=== PATIENT | female | born 1950 | race Caucasian/White ===

== ENCOUNTER 2018-12-02 10:33 | Emergency (ER) | payer OTHER, MEDICAID ==
[2018-12-02 11:02] VITALS: BP 138/69
[2018-12-02 11:25] LABS: BILIRUBIN,URINE NEGATIVE (NEGATIVE); GLUCOSE, URINE (UA) NEGATIVE (NEGATIVE); KETONES,URINE (UA) NEGATIVE (NEGATIVE); LEUKOCYTE ESTERASE, URINE TRACE (NEGATIVE); NITRITE,URINE NEGATIVE (NEGATIVE); OCCULT BLOOD,URINE TRACE-LYSE (NEGATIVE); PH,URINE 6.5 PH (5.0-7.5); PROTEIN,URINE NEGATIVE (NEGATIVE); UROBILINOGEN,URINE 0.2 (NORMAL) E.U./dL (NORMAL)
[2018-12-02 11:26] LABS: CLARITY,URINE HAZY (CLEAR)
[2018-12-02 11:34] LABS: BACTERIA,URINE Many /HPF (None Seen); EPITHELIAL CELLS,UR FEW Transitional /HPF (<= Few); RBC,URINE 0-5 /HPF (0-5); SQUAMOUS EPITHELIAL CELL,UR FEW Squamous (<= Few); WBC CLUMPS,URINE PRESENT
[2018-12-02] MEDS ORDERED: cephALEXin 250 MG CAPSULE PO STA (12:04)
--- NOTE | 2018-12-02 12:16 | ED Physician Documentation ---
PD HPI FEMALE - Stated complaint Stated Complaint: NAUSEA - Chief complaint Chief Complaint: General - History obtained from History obtained from: Patient - History of Present Illness Timing - onset: How many days ago (2) Timing - details: Still present Associated symptoms: Dysuria Similar symptoms before: Diagnosis (uti) - Treatment prior to arrival Treatment prior to arrival: Azo - Additional information Additional information: Patient is a 68-year-old female who presents with dysuria and frequency of 2 days duration. She reports associated nausea, but denies vomiting. She denies fever or back pain. She has been using Azo which has improved her dysuria. She has a history of similar symptoms with a urinary tract infection about 3 months ago. She was treated with Macrobid at that time. [place], and has no local physician. Review of Systems Constitutional: denies: Fever Nose: denies: Congestion Throat: denies: Sore throat Cardiac: denies: Chest pain / pressure Respiratory: denies: Dyspnea, Cough GI: reports: Nausea. 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 HEENT: Tonsil/Adenoidectomy - Present Medications Home Medications: Ambulatory Orders Medication Instructions Recorded Confirmed Phenazopyridine HCl [Pyridium] 200 mg PO TID PRN #6 tablet 12/02/18 cephALEXin [Cephalexin] 500 mg PO TID #15 tablet 12/02/18 - Allergies Allergies/Adverse Reactions: Allergies Allergy/AdvReac Type Severity Reaction Status Date / Time aspirin Allergy Emesis Verified 12/02/18 11:02 - Social History Does the pt smoke?: No Smoking Status: Never smoker Does the pt drink ETOH?: No Does the pt have substance abuse?: No - Immunizations Immunizations are current?: Yes PD ED PE NORMAL - Vitals Vital signs reviewed: Yes (Borderline systolic hypertension.) - General General: 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, Well developed/nourished - HEENT HEENT: Atraumatic - Neck Neck: No adenopathy - Cardiac Cardiac: RRR - Respiratory Respiratory: No respiratory distress, Clear bilaterally - Abdomen Abdomen: Soft, Non tender - Back Back: No CVA TTP - Derm Derm: No rash - Neuro Neuro: 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, Normal speech Results - Vitals Vitals: Vital Signs - 24 hr 12/02/18 10:59 Temperature 36.8 C Heart Rate 70 Respiratory 18 Rate Blood Pressure 138/69 H O2 Saturation 98 Oxygen O2 Source Room air - Labs Labs: Laboratory Tests 12/02/18 11:12 Urine Color YELLOW Urine Clarity HAZY Urine pH 6.5 Ur Specific [place] <=1.005 Urine Protein NEGATIVE Urine Glucose (UA) NEGATIVE Urine Ketones NEGATIVE Urine Occult Blood TRACE-LYSE Urine Nitrite NEGATIVE Urine Bilirubin NEGATIVE Urine Urobilinogen 0.2 (NORMAL) Ur Leukocyte Esterase TRACE H Urine RBC 0-5 Urine WBC 6-10 H Urine WBC Clumps PRESENT Ur Epithelial Cells FEW Transitional Ur Squamous Epith Cells FEW Squamous Urine Bacteria Many H Ur Microscopic Review INDICATED Urine Culture Comments INDICATED PD MEDICAL DECISION MAKING - ED course Complexity details: reviewed results, considered differential, d/w patient ED course: The patient's presentation is most consistent with acute urinary tract infection, with positive urinalysis. Her presentation does not suggest pyelonephritis nor sepsis. Treatment in the emergency department included administration of cephalexin 500 mg orally. She is being discharged with prescriptions for cephalexin and Pyridium. I discussed with her the expected course of illness, antibiotic treatment and outpatient follow-up, as well as potentially worrisome signs or symptoms that should prompt reevaluation in the emergency department. Departure - Departure Disposition: 01 Home, Self Care Clinical Impression: Urinary tract infection Qualifiers: Urinary tract infection type: acute cystitis Hematuria presence: without hematuria Qualified Code(s): N30.00 - Acute cystitis without hematuria Condition: Stable Instructions: ED UTI Cystitis Female Prescriptions: cephALEXin [Cephalexin] 500 mg PO TID #15 tablet Phenazopyridine HCl [Pyridium] 200 mg PO TID PRN #6 tablet PRN Reason: dysuria Comments: Drink plenty of fluids, including cranberry juice. Take cephalexin twice daily as prescribed. You can use Pyridium as prescribed if needed for painful urination. You can use Tylenol or ibuprofen as needed for fever or discomfort. Follow up with your primary physician within 2 weeks. Call to schedule appointment. Return to the emergency department if you develop increasing abdominal pain, fever with shaking chills, persistent vomiting, or otherwise worsening symptoms.
== END 2018-12-02 12:30 | disposition home or self-care (01) ==
LOC: ED 10:33
DX: N30.00 Acute cystitis without hematuria (principal)
CPT/HCPCS: 81001; 87077; 87086; 87181; 99283; 99284; A9270; 81003

== ENCOUNTER 2021-08-07 11:03 | Emergency (ER) | payer MEDICARE, MEDICAID ==
--- NOTE | 2021-08-07 11:20 | ED Physician Documentation ---
PD HPI URI - Stated complaint Stated Complaint: COUGH, EXHAUSTION, DIZZY - Chief complaint Chief Complaint: Resp - History obtained from History obtained from: Patient - History of Present Illness Timing - onset: How many days ago (2) Timing duration: Days (2 days of increasing symptoms. Did home rapid test yesterday and today - both were positive.) Timing details: Abrupt onset, Still present Associated symptoms: Chills, Dry cough, Dyspnea. No: Fever, NVD (had some diarrhea last week, not currently) Contributing factors: Sick contact (she is visiting daughter's family this week. Kids have URI symptoms last week. Not tested.). No: Travel, Immunocompromised Similar symptoms before: Has not had sx before Recently seen: Not recently seen Review of Systems Constitutional: reports: Chills, Myalgias, Fatigue. 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 HEENT: Tonsil/Adenoidectomy - Present Medications Home Medications: Ambulatory Orders Medication Instructions Recorded Confirmed Albuterol Sulf [Ventolin Hfa 2 - 3 puffs INH QID 10 Days #1 08/07/21 Inhaler] inhaler Benzonatate [Tessalon] 100 mg PO TID PRN #20 cap 08/07/21 - Allergies Allergies/Adverse Reactions: Allergies Allergy/AdvReac Type Severity Reaction Status Date / Time aspirin Allergy Emesis Verified 12/02/18 11:02 - Social History Does the pt smoke?: No Smoking Status: Never smoker Does the pt drink ETOH?: No Does the pt have substance abuse?: No - Immunizations Immunizations are current?: Yes PD ED PE NORMAL - Vitals Vital signs reviewed: Yes - General General: 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, No acute distress, Well developed/nourished - HEENT HEENT: Ears normal, Moist mucous membranes, Pharynx benign - Neck Neck: Supple, no meningeal sign, No adenopathy - Cardiac Cardiac: RRR, No murmur - Respiratory Respiratory: No respiratory distress. No: Clear bilaterally (tight sounds with scattered wheezes. No coarse sounds. ) - Abdomen Abdomen: Soft, Non tender - Derm Derm: Normal color, Warm and dry - Extremities Extremities: Normal ROM s pain, No edema, No calf tenderness / cord - Neuro Neuro: 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, No motor deficit, Normal speech Results - Vitals Vitals: Vital Signs - 24 hr 08/07/21 08/07/21 08/07/21 11:11 12:10 12:17 Temperature 36.9 C Heart Rate 76 78 88 Respiratory 19 16 19 Rate Blood Pressure 138/109 H 138/75 H O2 Saturation 100 100 Oxygen O2 Source Room air PD MEDICAL DECISION MAKING - ED course Complexity details: considered differential (COVID test positive at home. Symptoms for 2 days. Can give Albuterol and tessalon. Also antiviral. ), d/w patient Departure - Departure Disposition: 01 Home, Self Care Clinical Impression: Dyspnea due to COVID-19 Condition: Stable Record reviewed to determine appropriate education?: Yes Instructions: ED Dyspnea Shortness of Breath Prescriptions: Benzonatate [Tessalon] 100 mg PO TID PRN #20 cap PRN Reason: Cough Albuterol Sulf [Ventolin Hfa Inhaler] 2 - 3 puffs INH QID 10 Days #1 inhaler Comments: Use the antiviral medicine as directed. Use the albuterol inhaler 2 to 3 puffs 4 times a day for the next 7 to 10 days and extra times as needed. You could also add benzonatate/Tessalon Tessalon if needed for cough. Tylenol or ibuprofen if needed for fevers or pains. Stay well-hydrated. I transmitted your prescriptions to [facility] pharmacy. Discharge Date/Time: 08/07/21 13:20
[2021-08-07] MEDS: ALBUTEROL 1 PUFF INH STA (12:10)
[2021-08-07] MEDS: MOLNUPIRAVIR PREPACK PO STA (12:15)
[2021-08-07] MEDS: BENZONATATE 100 MG CAPSULE PO STA (12:15)
[2021-08-07 12:17] VITALS: BP 138/75
== END 2021-08-07 13:20 | disposition home or self-care (01) ==
LOC: ED 11:03
DX: R06.09 Other forms of dyspnea (principal); U09.9 Post COVID-19 condition, unspecified
CPT/HCPCS: 94640; 99282; 99283; A9270; J3490

== ENCOUNTER 2022-03-06 14:57 | Outpatient (CLI) | payer MEDICARE ==
--- NOTE | 2022-03-14 11:36 | Mammography Report ---
BILATERAL DIGITAL SCREENING MAMMOGRAM 3D/2D: 03/06/2022 CLINICAL: Routine screening. No prior exams were available for comparison. Both breasts are heterogeneously dense, which may obscure small masses (category c / 51-75% glandular tissue). No significant masses, calcifications, or other findings are seen in either breast. IMPRESSION: NEGATIVE There is no mammographic evidence of malignancy. A 1 year screening mammogram is recommended. Based on the Tyrer Cuzick model (a risk assessment model) the patients lifetime risk is 9.3% and her 10 year risk is 5.9%. According to the ACR, ACS, and NCCN guidelines, an annual breast MRI exam anton g with mammogram is recommended if the patients lifetime risk is 20% or greater. This exam was interpreted at Station ID: [id number]. NOTE: For mammograms, a report in lay terms will be sent to the patient. Approximately 15% of breast malignancies will not be visualized mammographically. In the management of a palpable breast mass, a negative mammogram must not discourage biopsy of a clinically suspicious lesion. Electronically Signed By: Tong Contreras M.D. [facility]:03/13/2022 11:40:23 ACR BI-RADS Category 1: Negative 3341F PARENCHYMAL PATTERN: (D) - The breast(s) demonstrate(s) heterogeneously dense fibroglandular emilio cristina. BI-RADS CATEGORY: (1) - 1 RECOMMENDATION: (ANNUAL) - Recommend routine annual screening mammography. [id number] 1 year screening LATERALITY: (B)
== END 2022-03-06 14:58 | disposition home or self-care (01) ==
LOC: DI 14:57
PROVIDERS: ATTEND Internal Medicine
DX: Z12.31 Encounter for screening mammogram for malignant neoplasm of breast (principal)

== ENCOUNTER 2022-03-10 12:26 | Outpatient (CLI) | payer MEDICARE ==
--- NOTE | 2022-03-10 15:14 | DEXA Report ---
PROCEDURE: Dexa Spine and/or Hip INDICATIONS: OSTEOPOROSIS TECHNIQUE: Dual energy x-ray absorptiometry (DXA) was performed on a Petsy System. Regions measur ed are the AP Spine, femoral neck, and if needed forearm. COMPARISON: None. FINDINGS: Lumbar Spine: Bone Mineral Density 1.033 g/cm/cm,T score -1.2 Left Femoral Neck: Bone Mineral Density 0.579 g/cm/cm, T score -3.3 Left Hip: Bone Mineral Density 0.630 g/cm/cm,T score -3.0 (T score greater or equal to -1.0: NORMAL) (T score from -1.1 to -2.4: OSTEOPENIA) (T score less than or equal to -2.5 to: OSTEOPOROSIS) Impression: 1. Osteoporosis of the left hip. 2. Osteopenia of the lumbar spine. Patients with diagnosis of osteoporosis or osteopenia should have regular bone mineral density assess ment. For those eligible for Medicare, routine testing is allowed once every 2 years. Testing frequ ency can be increased for patients who have rapidly progressing disease or for those who are receivin g medical therapy to restore bone mass. Reviewed by: Brooklyn Carreon MD on 03/10/2022 3:13 PM PST Approved by: Brooklyn Carreon MD on 03/10/2022 3:13 PM PST Station ID: [id number]
== END 2022-03-10 12:27 | disposition home or self-care (01) ==
LOC: DI 12:26
PROVIDERS: ATTEND Internal Medicine
DX: M81.0 Age-related osteoporosis without current pathological fracture (principal)

== ENCOUNTER 2022-07-24 13:53 | Emergency (ER) | payer MEDICARE, MEDICAID ==
[2022-07-24 14:10] VITALS: BP 145/72
[2022-07-24 14:34] LABS: BILIRUBIN,URINE NEGATIVE (NEGATIVE); GLUCOSE, URINE (UA) NEGATIVE (NEGATIVE); KETONES,URINE (UA) NEGATIVE (NEGATIVE); LEUKOCYTE ESTERASE, URINE TRACE (NEGATIVE); NITRITE,URINE NEGATIVE (NEGATIVE); OCCULT BLOOD,URINE NEGATIVE (NEGATIVE); PH,URINE 6.5 PH (5.0-7.5); PROTEIN,URINE NEGATIVE (NEGATIVE); UROBILINOGEN,URINE 0.2 (NORMAL) E.U./dL (NORMAL)
[2022-07-24 14:37] LABS: CLARITY,URINE CLEAR (CLEAR)
[2022-07-24 14:53] LABS: RBC,URINE 0-5 /HPF (0-5)
[2022-07-24 14:54] LABS: BACTERIA,URINE Few /HPF (None Seen); SQUAMOUS EPITHELIAL CELL,UR FEW Squamous (<= Few)
--- NOTE | 2022-07-24 15:23 | ED Physician Documentation ---
History of Present Illness - Stated complaint Stated Complaint: SOA,FEVER - Chief complaint Chief Complaint: Resp - Additonal information Additional information: An otherwise healthy 71-year-old female presents to the emergency department for evaluation of low-grade temperature elevations for the last week, dry cough and Single episode of epistaxis. She is new to [facility] and is unsure if her symptoms are due to local allergens or a virus. She states last night when she was in bed she had a brief period of where she had shortness of air but it resolved. Though that brief period of shortness of air scared her. Over the last week her cough has been nonproductive. Tmax of 99.5. She is a non-smoker no history of alcohol. No history of pneumonia. No recent travel. She also states that she does have a history of a prolapsed bladder. She has been straining harder than usual to micturate but does not have dysuria urgency or frequency. Patient takes no prescribed medications. 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 Cardiovascular: Other HEENT: Tonsil/Adenoidectomy - Allergies Allergies/Adverse Reactions: Allergies Allergy/AdvReac Type Severity Reaction Status Date / Time aspirin Allergy Emesis Verified 07/24/22 14:03 - Social History Does the pt smoke?: No Smoking Status: Never smoker Does the pt drink ETOH?: No Does the pt have substance abuse?: No - Immunizations Immunizations are current?: Yes PD ED PE NORMAL - General General: 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, No acute distress - HEENT HEENT: Atraumatic, Moist mucous membranes - Neck Neck: Supple, no meningeal sign, No adenopathy - Cardiac Cardiac: RRR, No murmur - Respiratory Respiratory: No respiratory distress, Clear bilaterally - Abdomen Abdomen: Normal bowel sounds, Soft - Derm Derm: Normal color, Warm and dry - Neuro 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: 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, 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 Eye Opening: Spontaneous Motor: Obeys Commands Verbal: Oriented GCS Score: 15 Results - Vitals Vitals: Vital Signs - 24 hr 07/24/22 14:03 Temperature 36.5 C Heart Rate 67 Respiratory 16 Rate Blood Pressure 145/72 H O2 Saturation 100 Oxygen O2 Source Room air - Labs Labs: Laboratory Tests 07/24/22 14:27 Urine Color LIGHT YELLOW Urine Clarity CLEAR Urine pH 6.5 Ur Specific [place] 1.010 Urine Protein NEGATIVE Urine Glucose (UA) NEGATIVE Urine Ketones NEGATIVE Urine Occult Blood NEGATIVE Urine Nitrite NEGATIVE Urine Bilirubin NEGATIVE Urine Urobilinogen 0.2 (NORMAL) Ur Leukocyte Esterase TRACE H Urine RBC 0-5 Urine WBC 4-5 Ur Squamous Epith Cells FEW Squamous Urine Bacteria Few Ur Microscopic Review INDICATED Urine Culture Comments INDICATED PD Medical Decision Making - ED course Complexity details: reviewed results, d/w patient ED course: Well-appearing 71-year-old female presents emergency department for evaluation of mostly dry cough over the last week with low-grade temperature elevations up to 99.5. She is vaccinated boosted for COVID and has tested negative. Here in the emergency department cardiopulmonary auscultation was entirely unremarkable. No hypoxia. I did offer chest x-ray imaging but patient declined. Clinically patient is considered low risk for PE by Wells criteria. She also has no overt symptoms for heart failure such as wheeze, crackles or leg swelling. She had reported some increased straining with micturition but no dysuria urgency or frequency. Her UA is rather unimpressive and as such we will defer antibiotics unless her symptomatology changes. No abdominal tenderness was elicited on today's exam. After thorough discussion with patient at the bedside I discussed that the most likely etiology of her symptoms given the low-grade temperature elevation was a virus though seasonal allergies or not entirely ruled out I am making the recommendation for her to use saline nasal rinse followed by Flonase daily. The usual emergent return precautions for worsening symptoms were discussed. Departure - Departure Disposition: 01 Home, Self Care Clinical Impression: Dry cough Condition: Stable Record reviewed to determine appropriate education?: Yes Comments: You were seen today in the emergency department because over the last week you have had mostly a dry cough. You have had some low-grade temperature elevations up to 99.5. The most likely cause of the symptoms is a simple viral upper respiratory infection. In most cases the symptoms will get better between 7 and 10 days. It is also possible that you are continuing to deal with seasonal allergies. You can continue your daily Claritin or Zyrtec. You may benefit from using a saline nasal rinse at home followed by Flonase nasal spray. This is available [id number]. Your urinalysis today was not suggestive of a urinary tract infection. A culture is pending. If your urinary symptoms change, you develop fevers, have abdominal pain or difficulty with urination please return to the ER for a second evaluation. As always discussed these ED visits with your primary care provider/Dr. Sparks
== END 2022-07-24 15:37 | disposition home or self-care (01) ==
LOC: ED 13:53
DX: R05.9 Cough, unspecified (principal)
CPT/HCPCS: 81001; 81003; 87086; 99283

== ENCOUNTER 2023-03-09 09:59 | Outpatient (CLI) | payer MEDICARE, MEDICAID ==
[2023-03-09 10:14] LABS: BASOPHILS % (AUTO) 0.5 %; EOSINOPHILS # (AUTO) 0.1 10^3/uL (0.0-0.7); EOSINOPHILS % (AUTO) 2.3 %; HCT - HEMATOCRIT 38.1 % (37.0-47.0); HGB - HEMOGLOBIN 12.3 g/dL (12.0-16.0); LYMPHOCYTES # (AUTO) 1.6 10^3/uL (1.5-3.5); LYMPHOCYTES % (AUTO) 29.1 %; MEAN CORPUSCULAR HGB CONC 32.3 g/dL (32.0-36.0); MEAN CORPUSCULAR VOLUME 92.9 fL (81.0-99.0); MEAN PLATELET VOLUME 9.4 fL (7.9-10.8); MONOCYTES # (AUTO) 0.5 10^3/uL (0.0-1.0); MONOCYTES % (AUTO) 8.4 %; NEUTROPHILS # (AUTO) 3.3 10^3/uL (1.5-6.6); NEUTROPHILS % (AUTO) 59.5 %; PLT - PLATELET COUNT 252 10^3/uL (130-450); RED CELL DISTRIBUTION WIDTH 13.1 % (12.0-15.0); WHITE BLOOD COUNT 5.6 x10^3/uL (4.8-10.8)
[2023-03-09 10:31] LABS: ALBUMIN 4.3 g/dL (3.2-5.5); ALBUMIN/GLOBULIN RATIO 1.4 (1.0-2.2); ALKALINE PHOSPHATASE 67 IU/L (42-121); ALT ALANINE AMINOTRANSFERASE 15 IU/L (10-60); AST ASPARTATE AMINOTRANSFERASE 21 IU/L (10-42); BILIRUBIN,TOTAL 0.5 mg/dL (0.2-1.0); BUN - BLOOD UREA NITROGEN 16 mg/dL (6-20); CALCIUM 10.2 mg/dL (8.5-10.3); CARBON DIOXIDE - CO2 30 mmol/L (21-32); CHLORIDE 102 mmol/L (101-111); CHOL/HDL RATIO 2.5 (<4.4); CHOLESTEROL 215 mg/dL; CREATININE 0.7 mg/dL (0.6-1.3); GFR - MDRD 82 (>89); GLUCOSE 101 mg/dL (74-104); HDL CHOLESTEROL 86 mg/dL; LDL CHOLESTEROL,CALCULATED 117 mg/dL; LDL/HDL RATIO 1.4 (<4.4); POTASSIUM 4.6 mmol/L (3.5-4.5); SODIUM 135 mmol/L (135-145); TOTAL PROTEIN 7.3 g/dL (6.4-8.9); TRIGLYCERIDES 61 mg/dL (48-352); VLDL CHOLESTEROL 12 mg/dL
[2023-03-09 10:42] LABS: THYROID STIMULATING HORMONE 2.44 uIU/mL (0.34-5.60)
== END 2023-03-09 10:00 | disposition home or self-care (01) ==
LOC: LAB 09:59
PROVIDERS: ATTEND Internal Medicine
DX: Z00.00 Encounter for general adult medical examination without abnormal findings (principal); C44.310 Basal cell carcinoma of skin of unspecified parts of face; L30.9 Dermatitis, unspecified; M81.0 Age-related osteoporosis without current pathological fracture; I47.19 Other supraventricular tachycardia; R55 Syncope and collapse; N64.4 Mastodynia
CPT/HCPCS: 36415; 80053; 80061; 82306; 83721; 84443; 85025

== ENCOUNTER 2023-03-11 08:25 | Outpatient (CLI) | payer MEDICARE, MEDICAID ==
--- NOTE | 2023-03-11 12:23 | Mammography Report ---
BILATERAL DIGITAL DIAGNOSTIC MAMMOGRAM 3D/2D: 03/11/2023 CLINICAL: Intermittent pain in left breast. Due for bilateral exam. Comparison is made to exam dated: 03/06/2022 mammogram - [facility]. Both breasts are almost entirely fatty (category a/<25% glandular tissue). No significant masses, calcifications, or other findings are seen in either breast. Specifically, no finding to explain the patient's pain. IMPRESSION: NEGATIVE There is no abnormality seen in the left breast to correspond with the diffuse pain in the lower aspe ct. There is no mammographic evidence of malignancy. Return to annual mammogram screening schedule is rec ommended. Findings and recommendations were conveyed to the patient at time of exam. Based on the Tyrer Cuzick model (a risk assessment model) the patients lifetime risk is 3.9% and her 10 year risk is 2.7%. According to the ACR, ACS, and NCCN guidelines, an annual breast MRI exam anton g with mammogram is recommended if the patients lifetime risk is 20% or greater. This exam was interpreted at Station ID: [id number]. NOTE: For mammograms, a report in lay terms will be sent to the patient. Approximately 15% of breast malignancies will not be visualized mammographically. In the management of a palpable breast mass, a negative mammogram must not discourage biopsy of a clinically suspicious lesion. Electronically Signed By: Jenifer chong/:03/11/2023 09:07:09 ACR BI-RADS Category 1: Negative 3341F PARENCHYMAL PATTERN: (F) - The breast(s) demonstrate(s) diffuse fatty replacement. BI-RADS CATEGORY: (1) - 1 Mammogram [id number] return to screening LATERALITY: (B)
== END 2023-03-11 08:26 | disposition home or self-care (01) ==
LOC: DI 08:25
PROVIDERS: ATTEND Internal Medicine
DX: N64.4 Mastodynia (principal)

== ENCOUNTER 2023-04-22 13:43 | Emergency (ER) | payer MEDICARE, MEDICAID ==
[2023-04-22 14:02] VITALS: BP 146/69; O2SAT 100
--- NOTE | 2023-04-22 14:09 | ED Physician Documentation ---
PD HPI URI - Stated complaint Stated Complaint: CONGESTION/COUGH/SNEEZING - Chief complaint Chief Complaint: Heent - History obtained from History obtained from: Patient - History of Present Illness Timing - onset: How many weeks ago (1) Timing duration: Weeks (1) Timing details: Gradual onset Pain level max: 0 Pain level now: 0 Associated symptoms: Nasal congestion, Rhinorrhea, Sore throat (originally, none now), Dry cough. No: Fever Contributing factors: Sick contact. No: COPD / asthma - Additional information Additional information: Patient with cough and congestion x 1 week. She states that her mucus was green today so she was concerned she had an infection. 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 Cardiovascular: Other HEENT: Tonsil/Adenoidectomy - Present Medications Home Medications: Ambulatory Orders Medication Instructions Recorded Confirmed No Known Home Medications 04/22/23 04/22/23 - Allergies Allergies/Adverse Reactions: Allergies Allergy/AdvReac Type Severity Reaction Status Date / Time aspirin Allergy Emesis Verified 04/22/23 13:53 [facility] AdvReac Unknown Verified 04/22/23 13:53 cortisone AdvReac Emesis Verified 04/22/23 13:53 - Social History Does the pt smoke?: No Smoking Status: Never smoker Does the pt drink ETOH?: No Does the pt have substance abuse?: No - Immunizations Immunizations are current?: Yes PD ED PE NORMAL - Vitals Vital signs reviewed: Yes - General General: 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, No acute distress - HEENT HEENT: PERRL, Ears normal, Moist mucous membranes, Pharynx benign - Neck Neck: Supple, no meningeal sign - Cardiac Cardiac: RRR, Strong equal pulses - Respiratory Respiratory: No respiratory distress, Clear bilaterally - Abdomen Abdomen: Soft, Non tender, Non distended - Derm Derm: Warm and dry - Extremities Extremities: No edema - Neuro Neuro: 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 - Psych Psych: Normal mood, Normal affect Results - Vitals Vitals: Vital Signs - 24 hr 04/22/23 13:46 Temperature 36.3 C L Heart Rate 81 Respiratory 16 Rate Blood Pressure 146/69 H O2 Saturation 100 Oxygen O2 Source Room air - Labs Labs: Laboratory Tests 04/22/23 13:50 Nasal Adenovirus (PCR) NOT DETECTED Nasal B. parapertussis DNA (PCR) NOT DETECTED Nasal Coronavir 229E PCR NOT DETECTED Nasal Coronavir HKU1 PCR NOT DETECTED Nasal Coronavir NL63 PCR NOT DETECTED Nasal Coronavir OC43 PCR NOT DETECTED Nasal Enterovir/Rhinovir PCR NOT DETECTED Nasal Influenza B PCR NOT DETECTED Nasal Influenza A PCR NOT DETECTED Nasal Parainfluen 1 PCR NOT DETECTED Nasal Parainfluen 2 PCR NOT DETECTED Nasal Parainfluen 3 PCR NOT DETECTED Nasal Parainfluen 4 PCR NOT DETECTED Nasal RSV (PCR) NOT DETECTED Nasal B.pertussis DNA PCR NOT DETECTED Nasal C.pneumoniae (PCR) NOT DETECTED Ignacio Human Metapneumo PCR NOT DETECTED Nasal M.pneumoniae (PCR) NOT DETECTED Nasal SARS-CoV-2 (PCR) NOT DETECTED - Rads (name of study) cxr Relevant Findings:: Final report received, See rad report PD Medical Decision Making - ED course Complexity details: reviewed results, re-evaluated patient, considered differential, d/w patient ED course: Patient is very well-appearing, nontoxic. Afebrile. No hypoxia. No respiratory distress. No acute findings on chest x-ray. No acute abnormalities on respiratory PCR. Likely that she has a viral upper respiratory infection. No signs of bacterial infection. We will continue supportive care and have her follow-up with her PCP for further care. No evidence of pneumonia. Patient counseled regarding signs and symptoms for which I believe and urgent re- evaluation would be necessary. Patient with good understanding of and agreement to plan and is comfortable going home at this time This document was made in part using voice recognition software. While efforts are made to proofread this document, sound alike and grammatical errors may occur. Departure - Departure Disposition: 01 Home, Self Care Clinical Impression: Viral URI Condition: Good Instructions: ED URI Viral Follow-Up: Carla Pena MD [Primary Care Provider] - As Needed Comments: Your respiratory panel is negative for flu, covid, etc. Your chest xray does not show any acute abnormalities. Please follow up with your doctor for further care. Please return if you worsen. Forms: PCP List Discharge Date/Time: 04/22/23 15:43
[2023-04-22 14:56] LABS: B. PARAPERTUSSIS- RESP PCR PAN NOT DETECTED; B. PERTUSSIS- RESP PCR PANEL NOT DETECTED; C. PNEUMONIAE- RESP PCR PANEL NOT DETECTED; CORONAVIRUS 229E-RESP PCR NOT DETECTED; CORONAVIRUS HKU1-RESP PCR NOT DETECTED; CORONAVIRUS NL63-RESP PCR NOT DETECTED; CORONAVIRUS OC43-RESP PCR NOT DETECTED; HUMAN METAPNEUMOVIRUS NOT DETECTED; INFLUENZA A- RESP PCR PANEL NOT DETECTED; INFLUENZA B - RESP PCR PANEL NOT DETECTED; M. PNEUMONIAE- RESP PCR PANEL NOT DETECTED; PARAINFLUENZA VIRUS 1 NOT DETECTED; PARAINFLUENZA VIRUS 2 NOT DETECTED; PARAINFLUENZA VIRUS 3 NOT DETECTED; PARAINFLUENZA VIRUS 4 NOT DETECTED; RHINOVIRUS/ENTEROVIRUS NOT DETECTED; RSV- RESP PCR PANEL NOT DETECTED; SARS-CoV-2 -RESP PCR PANEL NOT DETECTED
--- NOTE | 2023-04-22 14:56 | XRAY Report ---
PROCEDURE: Chest 2V INDICATIONS: cough x 2 weeks TECHNIQUE: 2 views of the chest were acquired. COMPARISON: None. FINDINGS: Surgical changes and devices: Presumed C-loop recorder. Lungs and pleura: No pleural effusions or pneumothorax. Lungs are clear. Mediastinum: Mediastinal contours appear normal. Heart size is normal. Bones and chest wall: No suspicious bony lesions. Overlying soft tissues appear unremarkable. IMPRESSION: No acute cardiopulmonary process. Reviewed by: Cathie Stephens MD on 04/22/2023 2:55 PM [facility] Approved by: Cathie Stephens MD on 04/22/2023 2:55 PM [facility] Station ID: [id number]
== END 2023-04-22 15:43 | disposition home or self-care (01) ==
LOC: ED 13:43
DX: J06.9 Acute upper respiratory infection, unspecified (principal); Z11.52 Encounter for screening for COVID-19
CPT/HCPCS: 87633; 99283; 99284

== ENCOUNTER 2023-06-02 10:10 | Emergency (ER) | payer MEDICARE, MEDICAID ==
--- NOTE | 2023-06-02 10:37 | ED Physician Documentation ---
PD HPI URI - Stated complaint Stated Complaint: FLU LIKE SYMPTOMS - Chief complaint Chief Complaint: General - History obtained from History obtained from: Patient - History of Present Illness Timing - onset: How many days ago (several) Timing duration: Days Timing details: Gradual onset (was ill for some days and then more ill the past 2 days.), Still present Associated symptoms: Fever, Chills, Nasal congestion, Sore throat, Dry cough. No: NVD Contributing factors: No: COPD / asthma Similar symptoms before: Has not had sx before Review of Systems Constitutional: reports: Fever, Chills, Myalgias Nose: reports: Rhinorrhea / runny nose, Congestion Respiratory: reports: Dyspnea, Cough GI: denies: Vomiting, Diarrhea PD PAST MEDICAL HISTORY - Past Medical History Past Medical History: Yes Cardiovascular: Arrhythmia Respiratory: None Neuro: None Endocrine/Autoimmune: None GI: None LEATHER WORKER: None : Other HEENT: None Psych: None Musculoskeletal: None Derm: None - Past Surgical History Past Surgical History: Yes General: Appendectomy /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 WORKER: Dilation and currettage Cardiovascular: Other HEENT: Tonsil/Adenoidectomy - Present Medications Home Medications: Ambulatory Orders Medication Instructions Recorded Confirmed Albuterol Sulf [Ventolin Hfa 2 - 3 puffs INH QID #1 each 06/02/23 Inhaler] Benzonatate [Tessalon] 100 mg PO TID PRN #15 cap 06/02/23 Ondansetron Odt [Zofran] 4 mg TL Q6H PRN #10 tablet 06/02/23 dexAMETHasone [Decadron] 4 mg PO DAILY #5 tablet 06/02/23 - Allergies Allergies/Adverse Reactions: Allergies Allergy/AdvReac Type Severity Reaction Status Date / Time aspirin Allergy Emesis Verified 06/02/23 10:17 cetirizine [From Zyrtec] AdvReac Unknown Verified 06/02/23 10:17 cortisone AdvReac Emesis Verified 06/02/23 10:17 - Social History Does the pt smoke?: No Smoking Status: Never smoker Does the pt drink ETOH?: No Does the pt have substance abuse?: No - Immunizations Immunizations are current?: Yes - POLST Patient has POLST: No PD ED PE NORMAL - Vitals Vital signs reviewed: Yes - General General: 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, No acute distress (appears ill but not in distress. ), Well developed/nourished - HEENT HEENT: Pharynx benign. No: Moist mucous membranes - Neck Neck: Supple, no meningeal sign, No adenopathy - Cardiac Cardiac: RRR, No murmur - Respiratory Respiratory: No respiratory distress, Clear bilaterally Results - Vitals Vitals: Oxygen O2 Source Room air - Labs Labs: Laboratory Tests 06/02/23 10:23 Nasal Adenovirus (PCR) NOT DETECTED Nasal B. parapertussis DNA (PCR) NOT DETECTED Nasal Coronavir 229E PCR NOT DETECTED Nasal Coronavir HKU1 PCR NOT DETECTED Nasal Coronavir NL63 PCR NOT DETECTED Nasal Coronavir OC43 PCR NOT DETECTED Nasal Enterovir/Rhinovir PCR DETECTED A Nasal Influenza B PCR NOT DETECTED Nasal Influenza A PCR NOT DETECTED Nasal Parainfluen 1 PCR NOT DETECTED Nasal Parainfluen 2 PCR NOT DETECTED Nasal Parainfluen 3 PCR NOT DETECTED Nasal Parainfluen 4 PCR NOT DETECTED Nasal RSV (PCR) NOT DETECTED Nasal B.pertussis DNA PCR NOT DETECTED Nasal C.pneumoniae (PCR) NOT DETECTED Ignacio Human Metapneumo PCR NOT DETECTED Nasal M.pneumoniae (PCR) NOT DETECTED Nasal SARS-CoV-2 (PCR) DETECTED A PD Medical Decision Making - ED course Complexity details: considered differential (viral type symptoms and viral PCR positive for COVID and Rhinovirus. Likely had one of them and now more ill with second virus.), d/w patient Departure - Departure Disposition: 01 Home, Self Care Clinical Impression: COVID-19, Acute bronchitis due to Rhinovirus, Nausea, Dyspnea Condition: Stable Record reviewed to determine appropriate education?: Yes Instructions: ED Viral Syndrome Prescriptions: dexAMETHasone [Decadron] 4 mg PO DAILY #5 tablet Benzonatate [Tessalon] 100 mg PO TID PRN #15 cap PRN Reason: Cough Albuterol Sulf [Ventolin Hfa Inhaler] 2 - 3 puffs INH QID #1 each Ondansetron Odt [Zofran] 4 mg TL Q6H PRN #10 tablet PRN Reason: Nausea / Vomiting Comments: Your respiratory viral panel was positive for both COVID and rhinovirus. Most likely you had one of them to begin with and then the second 1 on top to have your increased symptoms now. We can try to treat the symptoms with the albuterol inhaler 2 to 3 puffs 4 times daily for the next several days to week or more. Decadron steroid to help with some of the inflammation through the bronchioles and therefore less cough and better breathing. Ondansetron/Zofran if needed for nausea. Small frequent fluids and try to stay well-hydrated. Benzonatate if needed for cough. Tylenol every 4-6 hours regularly for the next few days and then as needed. Return to the ER if worsening trouble breathing or general symptoms. I sent a prescription to the [facility] pharmacy here in [place]. Forms: PCP List Discharge Date/Time: 06/02/23 13:23
[2023-06-02 11:25] LABS: CORONAVIRUS 229E-RESP PCR NOT DETECTED; CORONAVIRUS HKU1-RESP PCR NOT DETECTED; CORONAVIRUS NL63-RESP PCR NOT DETECTED; HUMAN METAPNEUMOVIRUS NOT DETECTED; RHINOVIRUS/ENTEROVIRUS DETECTED
[2023-06-02 11:26] LABS: B. PARAPERTUSSIS- RESP PCR PAN NOT DETECTED; B. PERTUSSIS- RESP PCR PANEL NOT DETECTED; C. PNEUMONIAE- RESP PCR PANEL NOT DETECTED; CORONAVIRUS OC43-RESP PCR NOT DETECTED; INFLUENZA A- RESP PCR PANEL NOT DETECTED; INFLUENZA B - RESP PCR PANEL NOT DETECTED; M. PNEUMONIAE- RESP PCR PANEL NOT DETECTED; PARAINFLUENZA VIRUS 1 NOT DETECTED; PARAINFLUENZA VIRUS 2 NOT DETECTED; PARAINFLUENZA VIRUS 3 NOT DETECTED; PARAINFLUENZA VIRUS 4 NOT DETECTED; RSV- RESP PCR PANEL NOT DETECTED
[2023-06-02 11:29] LABS: SARS-CoV-2 -RESP PCR PANEL DETECTED
[2023-06-02] MEDS: ONDANSETRON 4 MG/2 ML VIAL IVP STA (11:41)
[2023-06-02] MEDS: KETOROLAC 15 MG/ML VIAL IVP STA (11:41)
[2023-06-02] MEDS: SODIUM CHLORIDE 0.9% 1,000 ML IV STA (11:42)
[2023-06-02] MEDS: ALBUTEROL 1 PUFF INH STA (11:45)
[2023-06-02 13:24] VITALS: BP 114/54; O2SAT 98
== END 2023-06-02 13:23 | disposition home or self-care (01) ==
LOC: ED 10:10
DX: U07.1 COVID-19 (principal); J20.6 Acute bronchitis due to rhinovirus; R06.00 Dyspnea, unspecified
CPT/HCPCS: 87633; 94640; 96374; 99283

== ENCOUNTER 2023-06-02 10:15 | Outpatient (CLI) | payer MEDICARE, MEDICAID | END 2023-06-02 23:59 | disposition critical access hospital (66) | LOC: EMS 10:15 | DX: R51.9 Headache, unspecified (principal); R53.1 Weakness; R05.9 Cough, unspecified; R50.9 Fever, unspecified; R11.2 Nausea with vomiting, unspecified | CPT/HCPCS: A0425; A0429 ==

== ENCOUNTER 2023-11-27 08:00 | Outpatient (CLI) | payer MEDICARE, MEDICAID ==
[2023-11-27 16:53] LABS: BILIRUBIN,URINE NEGATIVE (NEGATIVE); GLUCOSE, URINE (UA) 100 mg/dL (NEGATIVE); KETONES,URINE (UA) NEGATIVE (NEGATIVE); LEUKOCYTE ESTERASE, URINE LARGE (NEGATIVE); NITRITE,URINE POSITIVE (NEGATIVE); OCCULT BLOOD,URINE MODERATE (NEGATIVE); PROTEIN,URINE 30 mg/dL (NEGATIVE)
[2023-11-27 17:05] LABS: CLARITY,URINE HAZY (CLEAR)
[2023-11-27 17:10] LABS: BACTERIA,URINE Few /HPF (None Seen); SQUAMOUS EPITHELIAL CELL,UR FEW Squamous (<= Few); WBC,URINE >25 /HPF (0-5)
== END 2023-11-27 23:59 | disposition home or self-care (01) ==
LOC: LAB.WC 08:00
PROVIDERS: ATTEND Obstetrics & Gynecology
DX: R30.0 Dysuria (principal)
CPT/HCPCS: 81001; 87086; 87181